=== PATIENT | male | born 1965 | race Caucasian/White ===

== ENCOUNTER 2018-02-18 11:48 | Emergency (ER) | payer OTHER ==
[~2018-02-18] VITALS: Ht 193 cm; Wt 84.0 kg
[~2018-02-18 11:48] MED LIST: IBUP-1428 PO; VNTHFA/IN PO
[2018-02-18 11:57] VITALS: TEMP 36.4; Ht 193 cm; Wt 84.0 kg
[2018-02-18] MEDS ORDERED: MoRPHine SULFATE 10 MG/ML CARP/VIAL IM STA (12:28)
[2018-02-18] MEDS ORDERED: CYCLOBENZAPRINE HCL 10 MG TAB PO STA (12:28)
[2018-02-18] MEDS ORDERED: KETOROLAC TROMETHAMINE 60 MG/2 ML VIAL IM STA (12:28)
[2018-02-18] MEDS ORDERED: ONDANSETRON 4MG OD TAB PO ONE (12:30)
[2018-02-18] MEDS ORDERED: CYCL10TA6 PO (13:27)
--- NOTE | 2018-02-18 13:27 | EMERGENCY ROOM VISIT NOTE ---
ED Visit Note First contact with patient: 12:11 CHIEF COMPLAINT: Low back pain 2 days HISTORY OF PRESENT ILLNESS: Patient is a 52-year-old white male who presents emergency department accompanied by his for evaluation of low back pain. Patient states that his pain started yesterday, but was tolerable. He was a little bit stiff when he woke up this morning, but applied heat and his back loosened up a little bit. He has a history of low back pain, he has had x-rays in the past which show arthritis. He was under the care of a chiropractor for his back last year. He takes ibuprofen fairly regularly for back pain and other musculoskeletal pains. 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 He notes pain across his entire low back, just above his pant line. It radiates slightly into the buttocks, but not to the legs. His back will tighten and spasm up with certain movements. He denies any bowel or bladder incontinence or numbness, tingling or weakness into the lower extremities. He states that this does feel similar to prior exacerbations of his back pain. He rates his pain a 10/10. REVIEW OF SYSTEMS: Review of systems as per HPI. All other systems reviewed were negative. 10 systems reviewed. PMH: Electronic medical records are reviewed and summarized as above/below. See Problem List. SOCIAL HISTORY: Patient lives at home with his . Smoker.. PHYSICAL EXAM: Vital Signs: Reviewed Nurse's notes. CONSTITUTIONAL: Patient is an uncomfortable appearing 52-year-old white male who is awake and alert and in moderate distress sitting upright on the chair at the bedside. There is significant discomfort with position changes. CARDIOVASCULAR: Regular rate and rhythm, with normal S1 and S2, no murmur or gallop or rub is heard. No carotid bruits auscultated. No JVD. Peripheral pulses easily palpable. RESPIRATORY: Breath sounds equal and clear to auscultation without wheezes, rales, or rhonchi heard. Full and equal chest expansion without accessory muscle use or retractions. ABDOMEN: Bowel sounds are present. Abdomen is soft, nontender and nondistended. INTEGUMENTARY: No lesions or rash, normal skin turgor. LYMPH: No lymphadenopathy. SPINE: Examination of the patient's back does not demonstrate any ecchymosis, abrasions or outward signs of trauma. No erythema, increased warmth or induration. Patient has midline discomfort to palpation over the low lumbar spine, and over the bilateral paraspinous musculature and erector muscles. There is no pain over the SI joint or the sciatic notch. He has increased pain with range of motion including rotation and flexion. EXTREMITIES: Leg lengths are symmetrical. Negative logroll bilaterally. Normal strength including dorsi-flexion and plantar flexion of the great toes and ankles and flexion and extension of the knees and flexion of the hips. Negative bilateral straight leg raise testing. Lower extremity DTRs are equal and symmetrical bilaterally. Distal pulses are easily palpable. Sensation light touch is intact over the lower extremities bilaterally. EMERGENCY DEPARTMENT COURSE: The patient was seen and assessed as above. Treatment options were discussed with the patient. He was medicated with Toradol 60 mg and morphine 10 mg IM with Zofran 4 mg ODT and Flexeril 10 mg orally. He was observed in the emergency department and reassessed after roughly 30 minutes. He did report that his pain had improved, he was able to walk to the bathroom and reports that this was more tolerable. Supportive care measures were discussed. The patient has a history of low back pain, he appears to have exacerbated it recently. He would prefer to avoid narcotics. He was encouraged to continue his ibuprofen, and was given Flexeril to use as an antispasmodic. He was encouraged to follow-up with his primary care provider if his symptoms are not improving. The patient rated his discomfort a 6/10 at discharge. MEDICAL DECISION MAKING: I do not suspect acute compression syndrome, cauda equina, diskitis, epidural abscess, hematoma or neurovascular compromise. Medication reconciliation: I attest that I have personally reviewed the patient' s current medication list. Patient was reviewed in the [facility] Prescription Drug Monitoring Program, and there were no red flags noted. Blood pressure screening: Patient was found to have a slightly elevated blood pressure due to circumstances. I do not believe that the patient requires hypertension monitoring. Current/Historical Medications Scheduled PRN Albuterol Hfa (Ventolin Hfa), 2 PUFFS PO QID PRN for SOB/Wheezing Cyclobenzaprine Hcl (Flexeril), 10 MG PO TID PRN for Muscle Spasms Ibuprofen (Motrin), 800 MG PO Q8H PRN for Pain Allergies Coded Allergies: No Known Allergies (Unverified , 02/18/18) Vital Signs Date Time Temp Pulse Resp B/P (MAP) Pulse Ox O2 Delivery O2 Flow Rate FiO2 02/18/18 13:43 68 16 132/90 96 02/18/18 12:56 69 18 139/94 95 Room Air 02/18/18 11:57 36.4 75 20 158/95 98 Medications Administered Medications (Trade) Dose Ordered Sig/Carolynn Route Start Time Stop Time Status Last Admin Dose Admin Ketorolac Tromethamine (Toradol Inj) 60 mg NOW STAT IM 02/18/18 12:28 02/18/18 12:29 DC 02/18/18 12:42 60 MG Morphine Sulfate (MoRPHine SULFATE INJ) 10 mg NOW STAT IM 02/18/18 12:28 02/18/18 12:29 DC 02/18/18 12:43 10 MG Ondansetron HCl (Zofran Odt) 4 mg ONE ONCE PO 02/18/18 12:30 02/18/18 12:31 DC 02/18/18 12:40 4 MG Cyclobenzaprine HCl (Flexeril Tab) 10 mg NOW STAT PO 02/18/18 12:28 02/18/18 12:30 DC 02/18/18 12:40 10 MG Departure Information Impression Primary Impression: Back pain Prescriptions Cyclobenzaprine Hcl (FLEXERIL) 10 Mg Tab 10 MG PO TID Y for Muscle Spasms, #30 TAB Prov: Brooklynn Yen PA 02/18/18 Referrals No Doctor, Assigned (PCP) Patient Instructions My [facility] Additional Instructions DO NOT drive, drink alcohol, operate machinery, or perform dangerous activities today. You were given medications in the ER that can affect your ability to safely function or operate a vehicle. Cyclobenzaprine (Flexeril) 10 mg: Take 1 pills 3 times daily as needed for muscle spasms.. Avoid alcohol, operating machinery or dangerous equipment, working on ladders or roofs, DRIVING, or situations where being under the influence may be dangerous. Ibuprofen(Motrin, Advil) may be used for fever or pain. Continue 800 mg 3 times daily with food. Avoid using more than 2400mg in a 24 hour period. Do not use 2400mg per day for more than three consecutive days without physician direction. Prolonged inappropriate use can lead to stomach upset or ulcers. This medication can be taken if you need to drive, work, or perform activities which may be dangerous when taking narcotic pain medication. (AND/OR) Acetaminophen(Tylenol) may be used for fever or pain. Use 1000mg every six hours as needed. Avoid using more than 3000mg in a 24 hour period. This medication can be taken if you need to drive, work, or perform activities which may be dangerous when taking narcotic pain medication. Rest and avoid heavy lifting until your symptoms resolve and then gradually return to full activity. A good rule of thumb is if it hurts your back to perform a certain activity, then it should be avoided until you are healthy again. A heating pad, warm compresses, or a hot shower may help with tight muscles and can be done several times a day as needed. Continue current medications. Return to the ER immediately for any numbness, tingling, severe pain, loss of control of your bowels or bladder, inability to walk, or as needed. Follow up with your primary care physician within 3-5 days for a recheck of your current condition.
[2018-02-18 13:43] VITALS: BP 132/90; PULSE 68; O2SAT 96
== END 2018-02-18 13:40 | disposition home or self-care (01) ==
LOC: C.EDB 11:49 → C.EDD 13:40
DX: M54.5 Low back pain (principal); F17.210 Nicotine dependence, cigarettes, uncomplicated